=== PATIENT | male | born 1960 | race African-American/Black ===

== ENCOUNTER 2024-09-28 12:25 | Emergency (ER) | payer MEDICAID, OTHER ==
[~2024-09-28] VITALS: Ht 180.3 cm; Wt 100.0 kg
[~2024-09-28 12:25] MED LIST: LISINOPRIL; METOPROLOL
[2024-09-28 12:28] VITALS: O2SAT 98
[2024-09-28] MEDS ORDERED: INSULIN (12:37)
[2024-09-28] MEDS ORDERED: GABAPENTIN (12:37)
[2024-09-28] MEDS ORDERED: KEPPRA (12:37)
[2024-09-28] MEDS: ASPIRIN 81MG TABLET PO ONE (12:50)
[2024-09-28 12:56] LABS: BASOPHILS % 0.5 % (0.0-2.0); EOSINOPHILS % 1.5 % (0.0-5.0); HEMATOCRIT. 47.7 % (42.0-52.0); HEMOGLOBIN. 16.3 g/dL (14.0-18.0); LYMPHOCYTES % 48.6 % (20.0-50.0); MEAN PLATELET VOLUME 8.7 fl (7.4-10.4); MONOCYTES % 5.6 % (2.0-8.0); NEUTROPHILS % 43.8 % (40.0-76.0); PLATELET 298 x1000/uL (130-400); RED BLOOD CELL COUNT 5.23 mill/uL (4.7-6.1); RED CELL DISTRIBUTION WIDTH 13.9 % (11.6-14.6)
[2024-09-28 13:08] LABS: INR 1.0
[2024-09-28 13:14] LABS: CREATININE 1.3 mg/dL (0.6-1.3); UREA NITROGEN BLOOD 12 mg/dL (9-23)
[2024-09-28 13:15] LABS: TROPONIN I HIGH SENSITIVITY 6 ng/L (3.0-53)
[2024-09-28 13:16] LABS: ASPARTATE AMINOTRANSFERASE 32 IU/L (<34); BILIRUBIN DIRECT 0.3 mg/dL (<=3.0); BILIRUBIN TOTAL 1.0 mg/dL (0.1-1.0); PROTEIN TOTAL 7.5 g/dL (6.0-8.3)
[2024-09-28 14:35] VITALS: BP 128/85; PULSE 75; RESP 18; TEMP 37; O2SAT 100
[2024-09-29] MEDS ORDERED: triamterene-hctz PO (01:17)
[2024-09-29] MEDS ORDERED: CALC-1094 PO (01:25)
[2024-09-29] MEDS ORDERED: AMLO10TA80 PO (01:25)
[2024-09-29] MEDS ORDERED: METF-1149 PO (01:25)
[2024-09-29] MEDS ORDERED: ATOR20TA65 PO (01:25)
[2024-09-29] MEDS ORDERED: METF500S9 PO (11:20)
[2024-09-29] MEDS ORDERED: METO-539 PO (11:20)
[2024-09-29] MEDS ORDERED: GABA-290 PO (11:20)
[2024-09-29] MEDS ORDERED: VITA250012 PO (11:20)
[2024-09-29] MEDS ORDERED: CLON0.2T PO (21:51)
[2024-09-29] MEDS ORDERED: IBUP-1455 PO (21:51)
[2024-10-01] MEDS ORDERED: LEVE500T9 PO (16:43)
[2024-10-05] MEDS ORDERED: SENN-371 MT (14:37)
== END 2024-09-28 15:11 | disposition left against medical advice (07) ==
LOC: ER 12:25 → EDBEDREQTM 14:19 → EDBEDREQ 14:19 → ENRESERV 14:31 → CANRESERV 14:31 → ER 15:11 → CMPBEDREQ 09-30 07:22
DX: R07.89 Other chest pain (principal); F12.90 Cannabis use, unspecified, uncomplicated; E11.9 Type 2 diabetes mellitus without complications; I10 Essential (primary) hypertension; R06.02 Shortness of breath; Z98.890 Other specified postprocedural states
CPT/HCPCS: 80076; 80048; 83880; 85025; 85610; 85730; 84484; 36415; 71045; 93005; 99291; Z7610 ×2; A4606